=== PATIENT | male | born 1960 | race Caucasian/White ===

== ENCOUNTER 2017-07-18 08:52 | Emergency (ER) | payer BC ==
[~2017-07-18 08:52] MED LIST: ALBU2.5V36 INH; AZIT-18 PO; PRED-416 PO; PRED2.5T6 PO; [UNRECOGNIZED DRUG - CODE] PO
[2017-07-18] MEDS ORDERED: METH15TA4 PO (09:00)
--- NOTE | 2017-07-18 09:21 | EKG ---
FACILITY: [facility] - [place], [place] PATIENT NAME: PRANAY MURILLO : [id number] MR: [id number] V: [id number] EXAM DATE: ORDERING PHYSICIAN: FINA FAUST TECHNOLOGIST: NIGEL Colby Reason : SOB Blood Pressure : / mmHG Vent. Rate : 111 BPM Atrial Rate : 111 BPM P-R Int : 130 ms QRS Dur : 084 ms QT Int : 306 ms P-R-T Axes : 088 101 077 degrees QTc Int : 416 ms Sinus tachycardia Right atriall enlargement. Pulmonary disease pattern Right ventricular hypertrophy Indeterminant axis. Abnormal ECG When compared with ECG of 31-DEC-2016 10:46, No significant change was found Confirmed by GIORGIO JOSE ([id number]) on 07/18/2017 11:32:49 AM Referred By: ER Confirmed By:GIORGIO JOSE
[2017-07-18 09:34] LABS: PLATELET COUNT, AUTOMATED 252 K/uL (150-450)
--- NOTE | 2017-07-18 09:39 | ER Report ---
History and Physical Time Seen By MD: 09:39 Hx. of Stated Complaint: "IT FEELS LIKE I HAVE PNEUMONIA". COUGH, SOB, FEVER HPI/ROS 56-year-old male with a history of COPD presents to the emergency department with a cough and mild shortness of breath concerned that he has pneumonia. No fever or chills and no chest pain. No PE risk factors other than tobacco smoking. The patient is on weekly methotrexate as well as prednisone 5 mg daily. He has a nebulizer machine at home, but does not have the meds for the machine. Remainder of the 14 system rev: Yes Allergies: Coded Allergies: NSAIDS (Non-Steroidal Anti-Inflamma (Verified Adverse Reaction, Unknown, ) CANNOT TAKE WITH ARTHRITIS MEDICATION Home Meds Reported Medications Methotrexate Sodium (TREXALL) 15 Mg Tablet, 15 MG PO QWEEK 07/18/17 Prednisone (PREDNISONE) 2.5 Mg Tablet, 5 MG PO QDAY 12/31/16 Discontinued Reported Medications Folic Acid (FOLIC ACID) 10 Gm Powder, 10 GM PO QDAY 12/31/16 Prednisone (PREDNISONE) 5 Mg Tab.ds.pk, 5 MG PO QDAY 12/31/16 Discontinued Scripts Albuterol Sulfate 0.083% (ALBUTEROL SULFATE 0.083%) 2.5 Mg/3 Ml Vial.neb, 2.5 MG INH Q4-6H Y for cough, #1 BOX 0 Refills Prov:MARISSA BELLO MD 12/31/16 Azithromycin 250 Mg Tab (AZITHROMYCIN 250 MG TAB) 250 Mg Tablet, 1 TAB PO QDAY for 4 Days, #4 TAB 0 Refills start on 01/01/17 and take daily until complete Prov:MARISSA BELLO MD 12/31/16 Reviewed Nurses Notes: Yes Old Medical Records Reviewed: Yes Hx Smoking: Yes Smoking Status: Current: Every Day Smoker Hx Substance Use Disorder: No Hx Alcohol Use: No Family History of: HTN Constitutional Vital Sign - Last 24 Hours 07/18/17 07/18/17 07/18/17 07/18/17 08:57 09:00 09:02 09:02 Temp 101.0 Pulse 130 113 Resp 22 B/P (MAP) 162/94 151/109 (123) Pulse Ox 83 93 O2 Delivery Room Air O2 Flow Rate 4.0 07/18/17 07/18/17 07/18/1718 09:30 10:00 10:30 10:43 Pulse 105 112 Resp 12 20 B/P (MAP) 103/88 (93) 114/88 (97) 127/82 (97) Pulse Ox 96 07/18/17 07/18/17 07/18/17 10:43 10:50 11:00 Pulse 114 103 Resp 18 12 B/P (MAP) 105/81 (89) Pulse Ox 93 93 O2 Delivery Nasal Cannula O2 Flow Rate 4.0 Physical Exam General Appearance: The patient is alert, has no immediate need for airway protection and no signs of toxicity. Eyes: Pupils equal and round no pallor or injection. ENT, Mouth: Mucous membranes are moist. Respiratory: There are no retractions, faint coarse breath sounds throughout. No wheezing Cardiovascular: Tachycardic rate and rhythm. Gastrointestinal: Abdomen is soft and non tender, no masses, bowel sounds normal. Neurological: gross strength/sensation WNL Skin: Warm and dry, no rashes. Extremities are nontender, nonswollen and have full range of motion. DIFFERENTIAL DIAGNOSIS: After history and physical exam differential diagnosis was considered for shortness of breath including but not limited to pulmonary infectious process, COPD, asthma, pulmonary embolus and congestive heart failure. Medical Decision Making Data Points Result Diagram: 07/18/17 0903 07/18/17 0903 Laboratory Hematology Test 07/18/17 09:03 07/18/17 09:05 Red Blood Count 4.92 M/uL (4.00-5.60) Mean Corpuscular Volume 100.5 fL (80.0-96.0) Mean Corpuscular Hemoglobin 35.5 pg (26.0-33.0) Mean Corpuscular Hemoglobin Concent 35.3 g/dL (32.0-36.0) Red Cell Distribution Width 14.1 % (11.5-14.5) Mean Platelet Volume 7.5 fL (7.2-11.1) Neutrophils (%) (Auto) 75.6 % (39.4-72.5) Lymphocytes (%) (Auto) 9.4 % (17.6-49.6) Monocytes (%) (Auto) 14.4 % (4.1-12.4) Eosinophils (%) (Auto) 0.1 % (0.4-6.7) Basophils (%) (Auto) 0.5 % (0.3-1.4) Nucleated RBC Relative Count (auto) 0.1 /100WBC Neutrophils # (Auto) 8.2 K/uL (2.0-7.4) Lymphocytes # (Auto) 1.0 K/uL (1.3-3.6) Monocytes # (Auto) 1.6 K/uL (0.3-1.0) Eosinophils # (Auto) 0.0 K/uL (0.0-0.5) Basophils # (Auto) 0.1 K/uL (0.0-0.1) Nucleated RBC Absolute Count (auto) 0.01 K/uL D-Dimer Quantitative (PE/DVT) 1.07 ug/ml (0-0.50) Sodium Level 136 mmol/L (137-145) Potassium Level 4.7 mmol/L (3.5-5.0) Chloride Level 93 mmol/L (98-107) Carbon Dioxide Level 28 mmol/L (22-30) Blood Urea Nitrogen 17 mg/dl (9-21) Creatinine 1.00 mg/dl (0.66-1.25) Glomerular Filtration Rate Calc > 60.0 Random Glucose 115 mg/dl (75-110) Lactate 2.3 mmol/L (0.7-2.1) Calcium Level 9.5 mg/dl (8.4-10.2) Total Bilirubin 0.7 mg/dl (0.2-1.3) Aspartate Amino Transf (AST/SGOT) 32 U/L (0-35) Alanine Aminotransferase (ALT/SGPT) 42 U/L (0-56) Alkaline Phosphatase 68 U/L (0-126) Troponin I < 0.012 ng/ml Total Protein 7.8 gm/dl (6.3-8.2) Albumin 4.3 g/dl (3.5-5.0) Influenza Virus Type A (PCR) Negative (NEGATIVE) Influenza Virus Type B (PCR) Negative (NEGATIVE) Chemistry Test 07/18/17 09:03 07/18/17 09:05 White Blood Count 10.9 k/uL (4.5-11.0) Red Blood Count 4.92 M/uL (4.00-5.60) Hemoglobin 17.5 g/dL (14.0-18.0) Hematocrit 49.5 % (42.0-52.0) Mean Corpuscular Volume 100.5 fL (80.0-96.0) Mean Corpuscular Hemoglobin 35.5 pg (26.0-33.0) Mean Corpuscular Hemoglobin Concent 35.3 g/dL (32.0-36.0) Red Cell Distribution Width 14.1 % (11.5-14.5) Platelet Count 252 K/uL (150-450) Mean Platelet Volume 7.5 fL (7.2-11.1) Neutrophils (%) (Auto) 75.6 % (39.4-72.5) Lymphocytes (%) (Auto) 9.4 % (17.6-49.6) Monocytes (%) (Auto) 14.4 % (4.1-12.4) Eosinophils (%) (Auto) 0.1 % (0.4-6.7) Basophils (%) (Auto) 0.5 % (0.3-1.4) Nucleated RBC Relative Count (auto) 0.1 /100WBC Neutrophils # (Auto) 8.2 K/uL (2.0-7.4) Lymphocytes # (Auto) 1.0 K/uL (1.3-3.6) Monocytes # (Auto) 1.6 K/uL (0.3-1.0) Eosinophils # (Auto) 0.0 K/uL (0.0-0.5) Basophils # (Auto) 0.1 K/uL (0.0-0.1) Nucleated RBC Absolute Count (auto) 0.01 K/uL D-Dimer Quantitative (PE/DVT) 1.07 ug/ml (0-0.50) Glomerular Filtration Rate Calc > 60.0 Lactate 2.3 mmol/L (0.7-2.1) Calcium Level 9.5 mg/dl (8.4-10.2) Total Bilirubin 0.7 mg/dl (0.2-1.3) Aspartate Amino Transf (AST/SGOT) 32 U/L (0-35) Alanine Aminotransferase (ALT/SGPT) 42 U/L (0-56) Alkaline Phosphatase 68 U/L (0-126) Troponin I < 0.012 ng/ml Total Protein 7.8 gm/dl (6.3-8.2) Albumin 4.3 g/dl (3.5-5.0) Influenza Virus Type A (PCR) Negative (NEGATIVE) Influenza Virus Type B (PCR) Negative (NEGATIVE) Coagulation Test 07/18/17 09:03 D-Dimer Quantitative (PE/DVT) 1.07 ug/ml Microbiology Microbiology Date/Time Source Procedure Growth Status 07/18/17 09:03 Blood Blood Culture - Preliminary NO GROWTH SO FAR, SET LATE. REINCUBATED Resulted EKG/Imaging EKG Interpretation 12 lead EKG: Rhythm: sinus tachycardia [place]: normal QRS: normal ST segments: depressed in the inferior leads EKG c/w chronic lung disease Monitor Interpretation: Sinus Tachycardia Imaging X-ray:CXR was obtained. I viewed the images myself on the PACS system. My interpretation of the images is: hyperinflation of lungs without edema or infiltrate. The radiologist interpretation had no clinically significant variation from this interpretation. Results: CT scan of the CTA chest was obtained. The results of the study are c/w bronchitis. The study was read by the radiologist. I viewed the images myself on the PACS system. ED Course/Re-evaluation ED Course This is a 56-year-old male with a history of cigarette smoking and a history of COPD who presented to the emergency department today with worsening cough for the past 2-3 days. The patient stated he was worried that he had pneumonia. No fever or chills and no chest pain. He has been taking [id number] medications for his symptoms. In his tachycardia was noted both on the EKG and the in room monitor, so a CTA of the chest to evaluate for PE was obtained. Both the chest x-ray and CT scan are consistent with bronchitis. There is no PE , no pulmonary edema, and no infiltrates suggestive of an acute pneumonia. He is already on methotrexate and prednisone daily and does not need any additional steroids at this time. I did give him a dose of azithromycin for a COPD exacerbation in the setting of bronchitis. I will discharge him with 4 additional days of azithromycin, and he can follow-up with his primary care physician. Decision to Disposition Date: Jul 18, 2017 Decision to Disposition Time: 12:55 Depart Departure Latest Vital Signs Vital Signs Date Time Temp Pulse Resp B/P (MAP) Pulse Ox O2 Delivery O2 Flow Rate FiO2 07/18/17 11:00 103 12 105/81 (89) 93 3/19/18 10:43 Nasal Cannula 4.0 07/18/17 08:57 101.0 Impression: Primary Impression: COPD with acute lower respiratory infection Condition: Improved Disposition: HOME OR SELF-CARE New Scripts Azithromycin (ZITHROMAX) 250 Mg Tablet 1 TAB PO QDAY for 5 Days, #5 TAB Prov: FINA FAUST MD 07/18/17 Patient Instructions: Acute Bronchitis (ED) FINA FAUST MD Jul 18, 2017 09:39
--- NOTE | 2017-07-18 09:54 | RADIOLOGY IMAGING REPORT ---
FACILITY: [facility] PATIENT NAME: Shimon Downing : 1960 MR: [id number] V: [id number] EXAM DATE: ORDERING PHYSICIAN: FINA FAUST TECHNOLOGIST: Location: [facility] - [place] Patient: Shimon Downing : 1960 Visit/Account:[id number] Date of Sevice: 07/18/2017 2 VIEWS CHEST INDICATION: Short of breath. Cough. COMPARISON: None available FINDINGS: The lungs are hyperexpanded. There is flattening of the diaphragms. Asymmetric left midlung opacity when compared to the right. This may simply represent asymmetric emphysematous changes with more no rmal-appearing left midlung. No consolidation or air bronchograms. No effusion or pneumothorax is se en. Heart size and mediastinal contours are normal. IMPRESSION: 1. Hyperexpansion with underlying changes of obstructive airways disease/emphysema. 2. Asymmetric appearance of the left mid lung when compared to the right. This may simply be due to more normal-appearing left midlung as there is no discrete infiltrate or air bronchograms. Report Dictated By: Anson Lundberg at 07/18/2017 9:39 AM Report E-Signed By: Anson Lundberg at 07/18/2017 9:51 AM WSN:[email or web address]
[2017-07-18] MEDS ORDERED: ALBUTEROL/IPRATROPIUM 3 ML NEB NEB ONE (10:40)
[2017-07-18] MEDS ORDERED: NS(*) 0.9% 1000 ML BAG 1,000 ML IV ONE (10:40)
[2017-07-18] MEDS ORDERED: IV BOLUS 500 ML IVSOL IV ONE (10:40)
[2017-07-18] MEDS ORDERED: IOPAMIDOL 76% 75 ML INFUS BTL 75 ML ONE (11:30)
[2017-07-18] MEDS ORDERED: NS 0.9% 150 ML BAG 150 ML ONE (11:30)
--- NOTE | 2017-07-18 12:23 | RADIOLOGY IMAGING REPORT ---
FACILITY: [facility] PATIENT NAME: Shimon Downing : 1960 MR: [id number] V: [id number] EXAM DATE: ORDERING PHYSICIAN: FINA FAUST TECHNOLOGIST: Location: [facility] - [place] Patient: Shimon Downing : 1960 Visit/Account:[id number] Date of Sevice: 07/18/2017 CTA CHEST WW/O CNTR (PULM ANG) HISTORY: SOB, ELEVATED D DIMER ADDITIONAL HISTORY: None. TECHNIQUE: CTA chest with intravenous contrast attention to pulmonary arteries. Sagittal, coronal a nd slab 3D MIP coronal reconstructed images were also created for further evaluation and interpretati on. One of the following dose optimization techniques was utilized in the performance of this exam: Autom ated exposure control; adjustment of the mA and/or kV according to the patient's size; or use of an i terative reconstruction technique. Specific details can be referenced in the facility's radiology C T exam operational policy. CONTRAST: 75 mL Isovue 370 IV COMPARISON: 12/31/2016 FINDINGS: Heart/vessels: Pulmonary arterial tree well opacified and without evidence of pulmonary embolism. Mediastinum: Negative. Lymph nodes: Mild ill-defined hilar adenopathy, grossly unchanged and likely chronic or reactive. Lungs/pleura: Moderate emphysema, upper lung zone predominate. Lungs hyperinflated. Mild left lower lobe scarring. Subtle and small volume tree-in-bud infiltrate right upper lobe, new from prior exam . Non-calcified 6 x 8 mm (image 320), 3 x 5 mm (image 287) and 4 x 7 mm (image 252) left lower lobe nodules. Calcified left lower lobe nodule consistent with benign granuloma. Central and bilateral lo wer lobe bronchial wall thickening with basilar segment right lower lobe small airways opacification most consistent with either aspiration or mucus debris. Visualized upper abdomen: Negative. Bones/soft tissues: Mild degenerative changes visualized spine. IMPRESSION: 1. Technically adequate exam without evidence of pulmonary embolism. 2. Pulmonary emphysema and hyperinflation consistent with air trapping. 3. Several noncalcified left lower lobe pulmonary nodules, the largest measuring 6 x 8 mm. 6-month est CT follow-up recommended. 4. Central and bilateral lower lobe bronchial wall thickening with the right basilar small airways op acification consistent with either aspiration or mucus debris. 5. Subtle and small volume tree-in-bud infiltrate right upper lobe, most likely bronchiolitis. Report Dictated By: Andrew Garcia MD at 07/18/2017 11:58 AM Report E-Signed By: Andrew Garcia MD at 07/18/2017 12:18 PM WSN:[id number]
[2017-07-18] MEDS ORDERED: AZITHROMYCIN 250 MG TAB PO ONE (12:45)
[2017-07-18 13:00] VITALS: BP 96/76
[2017-07-18] MEDS ORDERED: AZIT-1 PO (13:03)
== END 2017-07-18 13:17 | disposition home or self-care (01) ==
LOC: ER 08:55
DX: J44.0 Chronic obstructive pulmonary disease with (acute) lower respiratory infection (principal); R00.0 Tachycardia, unspecified; F17.210 Nicotine dependence, cigarettes, uncomplicated; J43.9 Emphysema, unspecified; R91.8 Other nonspecific abnormal finding of lung field
CPT/HCPCS: 71046; 71275; 83605; 84484; 85025; 85379; 87040; 87502; 93005; 94640; 96360; 96361; 99284; J7030; J7620; Q0144; Q9967; 82040; 82247; 82310; 82374; 82435; 82565; 82947; 84075; 84132; 84155; 84295; 84450; 84460; 84520

== ENCOUNTER → 2017-08-05 | Outpatient (CLI) | payer BC ==
[~2017-08-05] MED LIST changes: +AZIT-1 PO; +FOLI-68 PO; +METH15TA4 PO; +METH2.5T43 PO; +PNEU0.5D3 IM; +PRE5 PO; +UMEC1DIS IH
== END ==
LOC: RESP 09:41
PROVIDERS: ATTEND Internal Medicine
DX: J98.4 Other disorders of lung (principal)
CPT/HCPCS: 94060; 94726; 94729